=== PATIENT | female | born 1970 | race Caucasian/White ===

== ENCOUNTER 2018-02-02 09:56 | Emergency (ER) | payer BC ==
[2018-02-02 10:24] VITALS: BP 128/73
--- NOTE | 2018-02-02 10:53 | ED ---
Throat Pain/Nasal Congestion - HPI Summary HPI Summary: 47 yr old female with the complaint of sinus pressure, and dental pain. Onset of symptoms over several days. She has dental pain right upper teeth. She has finally located a dentist in [facility]. She has no other complaints. No fever or chills. - History of Current Complaint Chief Complaint: UCRespiratory Time Seen by Provider: 02/02/18 10:39 - Allergies/Home Medications Allergies/Adverse Reactions: Allergies Allergy/AdvReac Type Severity Reaction Status Date / Time No Known Allergies Allergy Verified 02/02/18 10:16 PMH/Surg Hx/FS Hx/Imm Hx - Surgical History Surgery Procedure, Year, and Place: Partial hysterectomy Infectious Disease History: No Infectious Disease History: Denies: Traveled Outside the in Last 30 Days - Social History Alcohol Use: Occasionally Alcohol Amount: 1/MONTH Substance Use Type: Reports: None Smoking Status (MU): Heavy Every Day Tobacco Smoker Type: Cigarettes Amount Used/How Often: 1/2 PPD Length of Time of Smoking/Using Tobacco: 20 YEARS Review of Systems Constitutional: Negative Positive: Dental Pain, Nasal Discharge All Other Systems Reviewed And Are Negative: Yes Physical Exam Triage Information Reviewed: Yes Vital Signs On Initial Exam: Initial Vitals Temp Pulse Resp BP Pulse Ox 98 F 76 16 128/73 99 02/02/18 10:17 02/02/18 10:17 02/02/18 10:17 02/02/18 10:17 02/02/18 10:17 Vital Signs Reviewed: Yes Appearance: Positive: Well-Appearing, No Pain Distress Skin: Positive: Warm, Skin Color Reflects Adequate Perfusion Head/Face: Positive: Normal Head/Face Inspection Eyes: Positive: EOMI ENT: Positive: Sinus tenderness, Other - dental pain upper right teeth, and mild gingival swelling. no obvious decay or abscess. Neck: Positive: Nontender Respiratory/Lung Sounds: Positive: Clear to Auscultation, Breath Sounds Present Cardiovascular: Positive: RRR. Negative: Murmur Abdomen Description: Negative: Distended Neurological: Positive: Sensory/Motor Intact, Alert, Oriented to Person Place, Time, CN Intact II-III Psychiatric: Positive: Normal - [place] Coma Scale Best Eye Response: 4 - Spontaneous Best Motor Response: 6 - Obeys Commands Best Verbal Response: 5 - Oriented Coma Scale Total: 15 Diagnostics - Vital Signs Vital Signs Temp Pulse Resp BP Pulse Ox 02/02/18 10:17 98 F 76 16 128/73 99 - Laboratory Lab Statement: Any lab studies that have been ordered have been reviewed, and results considered in the medical decision making process. EENT Course/Dx - Course Course Of Treatment: 47 yr old female with sinusitis, and dental discomfort. Rx with Augmentin. - Diagnoses Provider Diagnoses: Sinusitis, Pain, dental Discharge - Sign-Out/Discharge Documenting (check all that apply): Patient Departure All imaging exams completed and their final reports reviewed: No Studies - Discharge Plan Condition: Good Disposition: HOME Prescriptions: Amoxicillin/Clavulanate TAB* [Augmentin TAB 875*] 875 mg PO BID #20 tab Patient Education Materials: Sinusitis (ED), Toothache (ED) Referrals: Tang Benoit MD [Primary Care Provider] - 2 Days - Billing Disposition and Condition Condition: GOOD Disposition: Home
== END 2018-02-02 10:53 | disposition home or self-care (01) ==
LOC: UCCORT 09:56
DX: J32.9 Chronic sinusitis, unspecified (principal); K08.89 Other specified disorders of teeth and supporting structures; F17.210 Nicotine dependence, cigarettes, uncomplicated
CPT/HCPCS: 99202; G0463